=== PATIENT | female | born 1960 | race Caucasian/White ===

== ENCOUNTER 2024-10-22 19:01 | Emergency (ER) | payer OTHER ==
[~2024-10-22] VITALS: Ht 157.5 cm; Wt 84.8 kg
[2024-10-22 19:12] VITALS: BP 151/84; PULSE 77; RESP 16; TEMP 98; O2SAT 99
[2024-10-22 22:14] LABS: BASOPHILS % 0.5 % (0.0-2.0); EOSINOPHILS % 1.8 % (0.0-5.0); HEMATOCRIT. 40.7 % (36.0-48.0); HEMOGLOBIN. 13.8 g/dL (12.0-16.0); LYMPHOCYTES % 42.1 % (20.0-50.0); MEAN CORPUSCULAR HEMOGLOBIN 30.4 pg (28.0-32.0); MEAN CORPUSCULAR HGB CONC 33.8 g/dL (31.0-37.0); MEAN CORPUSCULAR VOLUME 89.9 fL (81.0-99.0); MEAN PLATELET VOLUME 8.1 fl (7.4-10.4); NEUTROPHILS % 48.6 % (40.0-76.0); PLATELET 240 x1000/uL (130-400); RED BLOOD CELL COUNT 4.53 mill/uL (4.2-5.4); RED CELL DISTRIBUTION WIDTH 13.6 % (11.6-14.6); WHITE BLOOD COUNT 6.3 x1000/uL (4.5-11.0)
[2024-10-22 22:22] LABS: POTASSIUM 3.7 mEq/L (3.5-5.1)
[2024-10-22 22:23] LABS: CALCIUM 9.9 mg/dL (8.7-10.4)
[2024-10-22] MEDS ORDERED: HYDR28.485 RC (22:53)
== END 2024-10-22 23:37 | disposition home or self-care (01) ==
LOC: ER 19:01
DX: K64.4 Residual hemorrhoidal skin tags (principal); E78.00 Pure hypercholesterolemia, unspecified; I10 Essential (primary) hypertension
CPT/HCPCS: 36415; 80048; 85025; 99283